=== PATIENT | male | born 1950 | race Caucasian/White ===

== ENCOUNTER 2019-06-02 04:56 | Day surgery (SDC) | payer OTHER ==
[~2019-06-02] VITALS: Ht 175.3 cm; Wt 95.3 kg
[~2019-06-02 04:56] MED LIST: ISOSORBIDE MONO20 MG PO; NEURONTIN800 MG PO; OMEPRAZOLE40 MG PO; ULTRAM50 MG PO; VASOTEC5 MG PO; ZANAFLEX4 MG PO; ZOCOR20 MG PO
[2019-06-02 05:50] LABS: BASOPHILS 0.1 % (0-2); EOSINOPHILS 4.2 % (0-7); HEMATOCRIT 34.9 % (42.0-54.0); HEMOGLOBIN 11.7 g/dL (13.5-17.5); IMMATURE GRANULOCYTES 0.1 % (0-5); LYMPHOCYTES 35.5 % (15-50); MCH 29.9 pg (26.0-34.0); MCHC 33.5 g/dL (31.0-37.0); MCV 89.3 fL (80.0-100.0); MEAN PLATELET VOLUME 9.5 fL (7.4-10.4); MONOCYTES 7.2 % (2-11); NEUTROPHILS 52.9 % (40-80); PLATELET COUNT 190 10x3/uL (130-400); RBC 3.91 10x6/uL (4.20-6.10); WBC 8.6 10x3/uL (4.8-10.8)
[2019-06-02 06:14] LABS: CALC OSMOLALITY 282 mosm/kg (275-300); CALCIUM 8.2 mg/dL (8.5-10.1); CARBON DIOXIDE 23.8 mmol/L (21.0-32.0); CHLORIDE - SERUM 109 mmol/L (98-107); GLUCOSE 99 mg/dL (74-106); POTASSIUM - SERUM 3.8 mmol/L (3.5-5.1); SODIUM 142 mmol/L (136-145); UREA NITROGEN 13 mg/dL (7-18); eGFR NON AFRICAN AMERICAN 79 mL/min (90-120)
--- NOTE | 2019-06-02 06:30 | NUR ---
SOAP SUDS ENEMA ADMINISTERED. TOLERATED WELL APPROXIMATELY 350MLS IN.
[2019-06-02] MEDS ORDERED: BAYER CHEWABLE81 MG PO (06:52)
[2019-06-02] MEDS ORDERED: ZOVIRAX400 MG PO (06:52)
[2019-06-02] MEDS ORDERED: FLOMAX0.4 MG PO (06:52)
[2019-06-02] MEDS ORDERED: BACLOFEN10 MG PO (06:53)
[2019-06-02] MEDS ORDERED: TUMS X-STR300 MG PO (06:54)
[2019-06-02] MEDS ORDERED: PROSCAR5 MG PO (06:55)
[2019-06-02] MEDS ORDERED: CYMBALTA20 MG PO (06:55)
[2019-06-02] MEDS ORDERED: NITROSTAT0.4 MG SL (06:55)
[2019-06-02] MEDS ORDERED: ACETAMINOPHEN325 MG PO (06:56)
[2019-06-02] MEDS ORDERED: COZAAR50 MG PO (06:56)
[2019-06-02 06:59] VITALS: BP 130/68; Ht 175.3 cm; Wt 95.3 kg
--- NOTE | 2019-06-02 09:01 | NUR ---
BILATERAL ARMS TO SIDE OF PATIENT, JANETT.
--- NOTE | 2019-06-02 09:44 | NUR ---
0925- REC'D FROM RR. DROWSY, EASILY AROUSED WITH VERBAL STIMULI. DENIES PAIN, IV PATENT TO RIGHT HAND AT KVO. FULL LIQUID TRAY TO ROOM.VSS
--- NOTE | 2019-06-02 10:19 | OP ---
PATIENT NAME: SOFIA MATSON MEDICAL RECORD: [id number] :52 LOCATION:D.OPS ADMISSION DATE: SURGEON: CHARLES HEARN MD DATE OF OPERATION: 06/02/2019 SURGEON: Charles Hearn MD ANESTHESIA: TIVA by Rafaela Moreau CRNA. DIAGNOSES: Abnormal digital rectal examination of the prostate, bladder outlet obstruction. PROCEDURE: Cystoscopy, transrectal ultrasound (TRUS) and prostate biopsy. FINDINGS: On cystoscopy, bilateral lateral lobe hyperplasia, single ureteral orifices, no bladder tumors. On transrectal ultrasound, 36 gram prostate with no hypoechoic areas. SPECIMENS: Prostate biopsy cores. BLOOD LOSS: Minimal. CLINICAL HISTORY: This is a 68-year-old male, who is a prisoner. He was found on examination to have an abnormal digital rectal examination, was nodule on prostate at the left apex. He also has bladder outlet obstruction symptoms including nocturia and slow urinary flow for which he is taking tamsulosin. He comes today for cystoscopy, transrectal ultrasound and prostate biopsy. He is not allergic to any medications. He was given Ancef lactation coordinator to the OR. DESCRIPTION OF PROCEDURE: The patient was given IV sedation. He was then placed into the dorsal lithotomy position and prepped and draped. 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 Male sounds were then used to dilate the stricture to 26-Ukrainian. The scope was then passed easily. There were no further urethral strictures. The prostatic urethra was obstructive from bilateral lateral lobe hyperplasia. There was no median lobe. No bladder tumors were seen. The bladder was then emptied through the cystoscope sheath and the scope was removed. We then introduced the transrectal ultrasound probe and prostate size measurements were obtained. A 36 gram prostate size was estimated. Sextant biopsies were then obtained with at least 3 cores from each sextant. Once all the samples had been collected, the procedure was terminated. The patient will be going back to the longterm. We will forward the pathology results to the longterm in due time. TRANSINT:[id number] Voice Confirmation ID: [id number] DOCUMENT ID: [id number] OPERATIVE REPORT [id number] SOFIA MATSON CHARLES HEARN MD at 1019 CC: [id number] DICTATION DATE: 06/02/19 0994 CURRICULUM AND ASSESSMENT DIRECTOR: 06/02/19 0947 [facility] [address] [place] [address]
--- NOTE | 2019-06-02 10:33 | NUR ---
0955- AMBULATED TO WITHOUT DIFFICULTIES AND ABLE TO URINATE WITH COMPLAINTS.
--- NOTE | 2019-06-02 10:33 | NUR ---
1015- DISCONTINUED IV FROM RIGHT HAND WITH CATH INTACT. COVERED WITH BANDAID. PT TOLERATED WELL WITHOUT COMPLAINTS. DISPOSED INTO SHARPS
--- NOTE | 2019-06-02 10:34 | NUR ---
1030- DISCHARGED PAPERWORK REVIEWED WITH PT AND CO'S ACCOMPANYING. SIGNED WITHOUT QUESTIONS OR CONCERNS. COPY SENT
== END 2019-06-02 10:30 ==
LOC: D.OPS 04:56
PROVIDERS: Anesthesiology; ATTEND Urology
DX: N40.1 Benign prostatic hyperplasia with lower urinary tract symptoms (principal); N13.8 Other obstructive and reflux uropathy; Z01.812 Encounter for preprocedural laboratory examination

== ENCOUNTER 2020-01-27 08:26 | Outpatient (CLI) | payer OTHER ==
[~2020-01-27] VITALS: Ht 175.3 cm; Wt 92.7 kg
--- NOTE | ~2020-01-27 | HP ---
PATIENT: SOFIA MATSON MEDICAL RECORD: [id number] ACCOUNT: [id number] LOCATION:D.CT : 52 ADMISSION DATE: 01/27/20 PCP: No PCP HISTORY AND PHYSICAL EXAMINATION PREOPERATIVE DIAGNOSIS: Cervical lymphadenopathy. HISTORY OF PRESENT ILLNESS: The patient has enlarged cervical lymph nodes. He is here for a radiologic biopsy of these lymph nodes. Symptoms have been mild. Nothing aggravates. Nothing alleviates. PAST MEDICAL AND SURGICAL HISTORY: Coronary artery disease, coronary stents. ALLERGIES: Please see the nursing list. HOME MEDICINES: Please see the nursing list. PHYSICAL EXAMINATION: GENERAL: The patient does not appear acutely ill. VITAL SIGNS: Reviewed. EARS: External ears appear normal. EYES: Extraocular movements are intact. NECK: Trachea midline. CHEST: No intercostal retractions. PULMONARY: Nonlabored, no stridor. ABDOMEN: No peritonitis with cough. IMPRESSION: Cervical lymphadenopathy. PLAN: Radiologic intervention with lymph node biopsy. TRANSINT:[id number] Voice Confirmation ID: [id number] DOCUMENT ID: [id number] JARRET DE LA PAZ MD CC: [id number] DICTATION DATE: 01/27/20924 BOX TOE MAKER: 01/27/20 1011 DEP CLI 01/27/[address] [address]
[~2020-01-27 08:26] MED LIST changes: +ACETAMINOPHEN325 MG PO; +BACLOFEN10 MG PO; +BAYER CHEWABLE81 MG PO; +COZAAR50 MG PO; +CYMBALTA20 MG PO; +FLOMAX0.4 MG PO; +NITROSTAT0.4 MG SL; +PROSCAR5 MG PO; +TUMS X-STR300 MG PO; +ZOVIRAX400 MG PO
[2020-01-27] MEDS ORDERED: ISOSORBIDE MONO30 M1 PO (08:53)
[2020-01-27] MEDS ORDERED: COZAAR100 MG PO (08:55)
[2020-01-27 08:59] LABS: BASOPHILS 0.2 % (0-2); EOSINOPHILS 2.8 % (0-7); HEMATOCRIT 37.2 % (42.0-54.0); HEMOGLOBIN 11.9 g/dL (13.5-17.5); IMMATURE GRANULOCYTES 0.3 % (0-5); LYMPHOCYTES 41.1 % (15-50); MCH 29.1 pg (26.0-34.0); MEAN PLATELET VOLUME 9.6 fL (7.4-10.4); MONOCYTES 7.4 % (2-11); NEUTROPHILS 48.2 % (40-80); PLATELET COUNT 214 10x3/uL (130-400); RBC 4.09 10x6/uL (4.20-6.10); RDW 13.8 % (11.5-14.5); WBC 9.2 10x3/uL (4.8-10.8)
[2020-01-27 09:06] VITALS: Ht 175.3 cm; Wt 92.7 kg
[2020-01-27 09:25] LABS: INR 1.04 (0.85-1.17); PROTIME 13.6 SECONDS (11.6-15.0)
[2020-01-27 09:26] LABS: APTT 30.9 SECONDS (22.8-39.4)
[2020-01-27 09:27] LABS: CALC OSMOLALITY 287 mosm/kg (275-300); CALCIUM 8.8 mg/dL (8.5-10.1); CHLORIDE - SERUM 106 mmol/L (98-107); GLUCOSE 93 mg/dL (74-106); POTASSIUM - SERUM 3.6 mmol/L (3.5-5.1); SODIUM 144 mmol/L (136-145); UREA NITROGEN 15 mg/dL (7-18); eGFR NON AFRICAN AMERICAN 79 mL/min (90-120)
--- NOTE | 2020-01-27 10:38 | NUR ---
ORDER RECEIVED FROM DR LORA TO CANCEL BIOPSY AND DISCHARGE PATIENT. IV DC'D WITH TIP INTACT, PATIENT DISCHARGED VIA WHEELCHAIR WITH ADC GUARDS
== END 2020-01-27 10:38 ==
LOC: D.CT 08:26
PROVIDERS: Radiology Diagnostic Radiology; ATTEND Surgery
DX: R59.9 Enlarged lymph nodes, unspecified (principal); Z53.9 Procedure and treatment not carried out, unspecified reason

== ENCOUNTER 2020-03-01 05:38 | Outpatient (CLI) | payer OTHER ==
[~2020-03-01] VITALS: Ht 175.3 cm; Wt 93.0 kg
[~2020-03-01 05:38] MED LIST changes: +COZAAR100 MG PO; +ISOSORBIDE MONO30 M1 PO
[2020-03-01] MEDS ORDERED: MOBIC7.5 MG PO (06:38)
[2020-03-01 06:47] VITALS: Ht 175.3 cm; Wt 93.0 kg
[2020-03-01 07:37] LABS: HEMATOCRIT 37.1 % (42.0-54.0); HEMOGLOBIN 12.1 g/dL (13.5-17.5); MCH 29.7 pg (26.0-34.0); MCHC 32.6 g/dL (31.0-37.0); MCV 90.9 fL (80.0-100.0); MEAN PLATELET VOLUME 9.9 fL (7.4-10.4); RBC 4.08 10x6/uL (4.20-6.10); RDW 14.2 % (11.5-14.5); WBC 9.8 10x3/uL (4.8-10.8)
[2020-03-01 07:38] LABS: CALC OSMOLALITY 278 mosm/kg (275-300); CALCIUM 8.3 mg/dL (8.5-10.1); CHLORIDE - SERUM 107 mmol/L (98-107); CREATININE - SERUM 0.8 mg/dL (0.6-1.3); GLUCOSE 89 mg/dL (74-106); POTASSIUM - SERUM 4.2 mmol/L (3.5-5.1); SODIUM 140 mmol/L (136-145); UREA NITROGEN 15 mg/dL (7-18); eGFR NON AFRICAN AMERICAN > 90 mL/min (90-120)
--- NOTE | 2020-03-01 09:56 | NUR ---
VSS, O2 SAT 93% ON ROOM. TOLERATING LIQUIDS WELL. DISCHARGE PAPER WORK SIGNED AND IV REMOVED WITH TIP INTACT.
== END 2020-03-01 10:02 ==
LOC: D.OPS 05:38
PROVIDERS: Anesthesiology; ATTEND Surgery
DX: M25.511 Pain in right shoulder (principal)

== ENCOUNTER 2020-03-13 05:20 | Outpatient (CLI) | payer OTHER ==
[2020-03-01 06:47] VITALS: BMI 30.3
[~2020-03-13 05:20] MED LIST changes: +MOBIC7.5 MG PO
[2020-03-13 06:38] LABS: BASOPHILS 0.2 % (0-2); EOSINOPHILS 3.7 % (0-7); HEMATOCRIT 35.5 % (42.0-54.0); HEMOGLOBIN 11.3 g/dL (13.5-17.5); IMMATURE GRANULOCYTES 0.1 % (0-5); LYMPHOCYTES 39.8 % (15-50); MCH 29.1 pg (26.0-34.0); MCHC 31.8 g/dL (31.0-37.0); MCV 91.5 fL (80.0-100.0); MEAN PLATELET VOLUME 10.1 fL (7.4-10.4); NEUTROPHILS 48.2 % (40-80); PLATELET COUNT 240 10x3/uL (130-400); RBC 3.88 10x6/uL (4.20-6.10); RDW 14.2 % (11.5-14.5)
[2020-03-13 06:42] LABS: APTT 30.9 SECONDS (22.8-39.4); INR 1.06 (0.85-1.17); PROTIME 13.8 SECONDS (11.6-15.0)
[2020-03-13 06:47] LABS: CALC OSMOLALITY 274 mosm/kg (275-300); CALCIUM 8.6 mg/dL (8.5-10.1); CARBON DIOXIDE 23.7 mmol/L (21.0-32.0); CHLORIDE - SERUM 107 mmol/L (98-107); GLUCOSE 95 mg/dL (74-106); POTASSIUM - SERUM 3.4 mmol/L (3.5-5.1); SODIUM 137 mmol/L (136-145); UREA NITROGEN 14 mg/dL (7-18); eGFR NON AFRICAN AMERICAN 79 mL/min (90-120)
--- NOTE | 2020-03-13 08:14 | NUR ---
PER DR LEE- NO LYMPH NODE TO BIOPSY- CANCEL PROCEDURE
--- NOTE | 2020-03-13 08:15 | NUR ---
0530-ARRIVED WITH SENIOR CARE GUARDS X 2. 0810-IR NURSE CALLS AND SAYS PROCEDURE IS CX PER DR. LEE. 0815-DRESSING AND DISCHARGE INSTRUCTIONS REVIEWED WITH GUARD. 0818-D/C WITH GUARDS.
== END 2020-03-13 08:18 | disposition home or self-care (01) ==
LOC: D.CT 05:20
PROVIDERS: Specialist; ATTEND Surgery
DX: R59.0 Localized enlarged lymph nodes (principal); F41.9 Anxiety disorder, unspecified; Z53.9 Procedure and treatment not carried out, unspecified reason